=== PATIENT | male | born 1985 | race Two or more races ===

== ENCOUNTER 2016-08-31 03:04 | Emergency (ER) | payer SELFPAY ==
[~2016-08-31] VITALS: Ht 170.2 cm; Wt 82.0 kg
[~2016-08-31 03:04] MED LIST: ADVIL200 M1; AMOXICILLIN500 MG PO; CLINDAMYCIN HC150 MG PO; DOXYCYCLINE HY100 MG PO; ERYTHROMYC1 APPLICAT RIGHT EYE; LORTAB 10-3251 EACH PO; NAPROXEN500 MG PO; NORCO 5/3251 TABLET PO
[2016-08-31] MEDS ORDERED: MEDROL DOSEPAK4 MG PO (04:27)
[2016-08-31 04:43] VITALS: BP 152/98
== END 2016-08-31 04:45 | disposition home or self-care (01) ==
LOC: EME 03:04
DX: L50.9 Urticaria, unspecified (principal); Z91.018 Allergy to other foods; Z88.0 Allergy status to penicillin
CPT/HCPCS: 99281; 99283; J7512

== ENCOUNTER 2017-04-24 22:32 | Emergency (ER) | payer SELFPAY ==
[~2017-04-24] VITALS: Ht 172.7 cm; Wt 81.0 kg
[~2017-04-24 22:32] MED LIST changes: +MEDROL DOSEPAK4 MG PO
[2017-04-25 00:51] LABS: BASOPHIL COUNT 0.1 K/uL (0-0.1); EOSINOPHIL (%) 2.3 % (0-5); EOSINOPHIL COUNT 0.2 K/uL (0-0.3); HEMATOCRIT 41.3 % (38.0-50.0); IMMATURE GRANULOCYTE (%) 0.3 % (0.0-0.7); INSTRUMENT ABS NEUTROPHIL CT 4.3 K/uL; LYMPHOCYTE COUNT 2.6 K/uL (1.0-2.8); MCH 33.4 PG (29.0-34.0); MCHC 36.1 G/DL (30.0-36.0); MCV 92.6 FL (86-99); MEAN PLAT.VOLUME 9.7 uM^3 (9.0-12.4); MONOCYTE (%) 7.3 % (3-12); MONOCYTE COUNT 0.6 K/uL (0-0.8); NEUTROPHIL (%) 55.4 % (45-76); NEUTROPHIL COUNT 4.3 K/uL (1.8-6.4); PLATELET COUNT 268 K/uL (156-360); RBC DIS.WIDTH-CV 11.9 % (11.8-14.6); RBC DIS.WIDTH-SD 40.9 % (39-53); RED BLOOD COUNT 4.46 M/uL (4.00-5.50); WHITE BLOOD COUNT 7.8 K/uL (4.1-10.2)
[2017-04-25 00:57] LABS: CHLORIDE 100 mEq/L (99-109)
[2017-04-25 00:58] LABS: POTASSIUM 2.6 mEq/L (3.7-5.4); SODIUM 144 mEq/L (136-147)
[2017-04-25 01:00] LABS: GLUCOSE 86 mg/dL (70-99)
[2017-04-25 01:01] LABS: ANION GAP 16 MEQ/L (2-14)
[2017-04-25 01:02] LABS: TOTAL BILIRUBIN 0.5 mg/dL (0.0-1.0)
[2017-04-25 01:03] LABS: ALKALINE PHOSPHATASE 92 IU/L (3-129); GFR ESTIMATE (CALCULATED) > 59 mL/min/
[2017-04-25 01:05] LABS: UREA NITROGEN (BUN) 8 mg/dL (9-23)
[2017-04-25 01:21] LABS: SERUM ETHYL ALCOHOL 232 mg/dL
[2017-04-25 01:57] LABS: MAGNESIUM 1.5 mg/dL (1.3-2.7)
[2017-04-25] MEDS ORDERED: LIBRIUM25 MG PO (04:04)
[2017-04-25 04:06] VITALS: BP 145/92
== END 2017-04-25 04:10 | disposition home or self-care (01) ==
LOC: EME 22:32
PROVIDERS: Emergency Medicine
DX: R20.2 Paresthesia of skin (principal); F10.10 Alcohol abuse, uncomplicated; E87.6 Hypokalemia; E83.42 Hypomagnesemia; R56.9 Unspecified convulsions; Z87.820 Personal history of traumatic brain injury; F17.200 Nicotine dependence, unspecified, uncomplicated; Z88.0 Allergy status to penicillin
CPT/HCPCS: 70450; 80053; 82607; 82746; 83735; 85025; 99281; 99285; G0480; J3475

== ENCOUNTER 2017-07-02 23:14 | Emergency (ER) | payer SELFPAY ==
[~2017-07-02] VITALS: Ht 172.7 cm; Wt 77.5 kg
[~2017-07-02 23:14] MED LIST changes: +LIBRIUM25 MG PO
[2017-07-03 01:19] VITALS: BP 143/103
== END 2017-07-03 01:20 | disposition home or self-care (01) ==
LOC: RME 23:14 → EME 23:14 → RME 07-03 01:20
DX: S61.402A Unspecified open wound of left hand, initial encounter (principal); W23.0XXA Caught, crushed, jammed, or pinched between moving objects, initial encounter; F10.129 Alcohol abuse with intoxication, unspecified; J45.909 Unspecified asthma, uncomplicated; F17.200 Nicotine dependence, unspecified, uncomplicated; Z88.0 Allergy status to penicillin
CPT/HCPCS: 73130; 99281; 99284

== ENCOUNTER 2017-11-18 16:56 | Emergency (ER) | payer OTHER ==
[~2017-11-18] VITALS: Ht 172.7 cm; Wt 78.4 kg
[2017-11-18] MEDS ORDERED: LIBRIUM25 MG PO (17:58)
[2017-11-18] MEDS ORDERED: ZOFRAN ODT4 MG PO (17:58)
[2017-11-18] MEDS ORDERED: VITAMIN B-1100 MG PO (17:58)
[2017-11-18 18:07] VITALS: BP 00/0
== END 2017-11-18 18:18 | disposition home or self-care (01) ==
LOC: EME 16:56
DX: F10.229 Alcohol dependence with intoxication, unspecified (principal); F17.200 Nicotine dependence, unspecified, uncomplicated
CPT/HCPCS: 99281; 99284

== ENCOUNTER 2018-02-28 09:46 | Emergency (ER) | payer OTHER ==
[~2018-02-28] VITALS: Ht 172.7 cm; Wt 74.8 kg
[~2018-02-28 09:46] MED LIST changes: +VITAMIN B-1100 MG PO; +ZOFRAN ODT4 MG PO
[2018-02-28 10:19] LABS: HEMATOCRIT 42.9 % (38.0-50.0); HEMOGLOBIN 15.2 G/DL (12.5-16.6); MCH 33.2 PG (29.0-34.0); MCHC 35.4 G/DL (30.0-36.0); MCV 93.7 FL (86-99); PLATELET COUNT 247 K/uL (156-360); RBC DIS.WIDTH-CV 12.2 % (11.8-14.6); RBC DIS.WIDTH-SD 42.3 % (39-53); RED BLOOD COUNT 4.58 M/uL (4.00-5.50); WHITE BLOOD COUNT 11.4 K/uL (4.1-10.2)
[2018-02-28 10:29] LABS: CHLORIDE 99 mEq/L (99-109); POTASSIUM 2.9 mEq/L (3.7-5.4); SODIUM 141 mEq/L (136-147)
[2018-02-28 10:31] LABS: GLUCOSE 85 mg/dL (70-99)
[2018-02-28 10:35] LABS: CREATININE 0.7 mg/dL (0.6-1.3); GFR ESTIMATE (CALCULATED) > 59 mL/min/ (58.99-99999)
[2018-02-28 10:36] LABS: UREA NITROGEN (BUN) 9 mg/dL (9-23)
[2018-02-28 10:39] LABS: TROP-I INTERPRETATION NEGATIVE; TROPONIN-I 0.03 ng/mL (0.0-0.30)
[2018-02-28 12:33] VITALS: BP 143/95
== END 2018-02-28 12:46 | disposition home or self-care (01) ==
LOC: EME 09:46
DX: M94.0 Chondrocostal junction syndrome [Tietze] (principal); E87.6 Hypokalemia; J45.909 Unspecified asthma, uncomplicated; G89.29 Other chronic pain; F17.200 Nicotine dependence, unspecified, uncomplicated; Z87.81 Personal history of (healed) traumatic fracture; Z88.0 Allergy status to penicillin
CPT/HCPCS: 71046; 80048; 84484; 85027; 93005; 99281; 99285

== ENCOUNTER 2018-03-10 03:34 | Emergency (ER) | payer OTHER ==
[~2018-03-10] VITALS: Ht 172.7 cm; Wt 73.5 kg
[2018-03-10] MEDS ORDERED: PERIDEX473 ML MM (06:25)
[2018-03-10] MEDS ORDERED: MOTRIN600 MG PO (06:26)
[2018-03-10 07:12] VITALS: BP 137/92
== END 2018-03-10 07:13 | disposition home or self-care (01) ==
LOC: EME 03:34
DX: F10.129 Alcohol abuse with intoxication, unspecified (principal); S01.511A Laceration without foreign body of lip, initial encounter; S09.90XA Unspecified injury of head, initial encounter; W01.198A Fall on same level from slipping, tripping and stumbling with subsequent striking against other object, initial encounter; Z23 Encounter for immunization; J45.909 Unspecified asthma, uncomplicated; F17.200 Nicotine dependence, unspecified, uncomplicated; Z88.0 Allergy status to penicillin
CPT/HCPCS: 70450; 70486; 99281; 99283